=== PATIENT | male | born 1980 | race Caucasian/White ===

== ENCOUNTER 2019-01-05 12:31 | Emergency (ER) | payer SELFPAY ==
[2019-01-05] MEDS ORDERED: Sodium Chloride 0.9% 1,000 ML IV ONE (12:38)
--- NOTE | 2019-01-05 12:41 | EDM.PDOC ---
ED HPI GENERAL MEDICAL PROBLEM - General Stated Complaint: WEAKNESS Time Seen by Provider: 01/05/19 12:36 - History of Present Illness INITIAL COMMENTS - FREE TEXT/NARRATIVE: HISTORY AND PHYSICAL: History of present illness: Patient 38-year-old white malewith past medical history presents with concern of generalized weakness he states he felt near syncopal at work today he denies headache denies chest pain shortness breath or other concern he states he ate his usual breakfast which would consist of a doughnut these had water subsequent was not particularly hot and there was no one else ill at his place of employment Review of systems: As per history of present illness and below otherwise all systems reviewed and negative. Past medical history: As per history of present illness and as reviewed below otherwise noncontributory. Surgical history: As per history of present illness and as reviewed below otherwise noncontributory. Social history: No reported history of drug or alcohol abuse. Family history: As per history of present illness and as reviewed below otherwise noncontributory. Physical exam: HEENT: Atraumatic, normocephalic, pupils reactive, negative for conjunctival pallor or scleral icterus, mucous membranes dry, throat clear, neck supple, nontender, trachea midline. Lungs: Clear to auscultation, breath sounds equal bilaterally, chest nontender. Heart: S1S2, regular, negative for clicks, rubs, or JVD. Abdomen: Soft, nondistended, nontender. Negative for masses or hepatosplenomegaly. Negative for costovertebral tenderness. Pelvis: Stable nontender. Genitourinary: Deferred. Rectal: Deferred. Extremities: Atraumatic, negative for cords or calf pain. Neurovascular unremarkable. Neuro: Awake, alert, oriented. Cranial nerves II through XII unremarkable. Cerebellum unremarkable. Motor and sensory unremarkable throughout. Exam nonfocal. Diagnostics: CBC CMP troponin PT/INR chest x-ray EKG carboxyhemoglobin UA Therapeutics: Saline 1 L bolus personnel monitor Impression: #1 weakness #2 near syncope Definitive disposition and diagnosis as appropriate pending reevaluation and review of above. - Related Data Allergies Allergy/AdvReac Type Severity Reaction Status Date / Time No Known Allergies Allergy Verified 01/05/19 12:42 Home Meds: Home Meds . [No Known Home Meds] 01/05/19 [History] ED ROS GENERAL - Review of Systems Review Of Systems: ROS reveals no pertinent complaints other than HPI. ED EXAM, GENERAL - Physical Exam Exam: See Below (See dictation) Course - Vital Signs Last Recorded V/S: Last Vital Signs Temp 36.6 C 01/05/19 12:43 Pulse 85 01/05/19 12:43 Resp 20 01/05/19 12:43 BP 128/95 H 01/05/19 12:43 Pulse Ox 98 01/05/19 12:43 - Orders/Labs/Meds Orders: Active Orders 24 hr Category Date Time Status Cardiac Monitoring [RC] . DIRECTED Care 01/05/19 12:38 Active EKG Documentation Completion [RC] STAT Care 01/05/19 12:38 Active Pulse Oximetry [RC] ASDIRECTED Care 01/05/19 12:38 Active Chest 1V Frontal [CR] Stat Exams 01/05/19 12:38 Taken Sodium Chloride 0.9% [Normal Saline] 1,000 ml Med 01/05/19 12:38 Active IV STAT Medication Orders Sodium Chloride (Normal Saline) 1,000 mls @ 999 mls/hr IV STAT ONE Stop: 01/05/19 13:38 Last Admin: 01/05/19 12:58 Dose: 999 mls/hr Labs: Laboratory Tests 01/05/19 01/05/19 01/05/19 Range/Units 12:44 12:50 12:50 WBC 8.22 (4.0-11.0) K/uL RBC 5.08 (4.50-5.90) M/uL Hgb 16.4 (13.0-17.0) g/dL Hct 47.5 (38.0-50.0) % MCV 93.5 (80.0-98.0) fL MCH 32.3 H (27.0-32.0) pg MCHC 34.5 (31.0-37.0) g/dL RDW Std Deviation 43.3 (28.0-62.0) fl RDW Coeff of Roman 13 (11.0-15.0) % Plt Count 203 (150-400) K/uL MPV 10.00 (7.40-12.00) fL Neut % (Auto) 56.4 (48.0-80.0) % Lymph % (Auto) 33.8 (16.0-40.0) % [place] % (Auto) 7.9 (0.0-15.0) % Eos % (Auto) 1.7 (0.0-7.0) % Baso % (Auto) 0.2 (0.0-1.5) % Neut # (Auto) 4.6 (1.4-5.7) K/uL Lymph # (Auto) 2.8 H (0.6-2.4) K/uL [place] # (Auto) 0.7 (0.0-0.8) K/uL Eos # (Auto) 0.1 (0.0-0.7) K/uL Baso # (Auto) 0.0 (0.0-0.1) K/uL Nucleated RBC % 0.0 /100WBC Nucleated RBCs # 0 K/uL INR 1.03 ABG Carboxyhemoglobin (0-15) % Sodium (136-148) mmol/L Potassium (3.5-5.1) mmol/L Chloride (98-107) mmol/L Carbon Dioxide (21.0-32.0) mmol/L BUN (7.0-18.0) mg/dL Creatinine (0.8-1.3) mg/dL Est Cr Clr Drug Dosing mL/min Estimated GFR (MDRD) ml/min Glucose (74-106) mg/dL Calcium (8.5-10.1) mg/dL Total Bilirubin (0.2-1.0) mg/dL AST (15-37) IU/L ALT (14-63) IU/L Alkaline Phosphatase (46-116) U/L Total Protein (6.4-8.2) g/dL Albumin (3.4-5.0) g/dL Globulin (2.6-4.0) g/dL Albumin/Globulin Ratio (0.9-1.6) Urine Color YELLOW Urine Appearance CLEAR Urine pH 5.5 (5.0-8.0) Ur Specific [place] <= 1.005 (1.001-1.035) Urine Protein NEGATIVE (NEGATIVE) mg/dL Urine Glucose (UA) NEGATIVE (NEGATIVE) mg/dL Urine Ketones NEGATIVE (NEGATIVE) mg/dL Urine Occult Blood NEGATIVE (NEGATIVE) Urine Nitrite NEGATIVE (NEGATIVE) Urine Bilirubin NEGATIVE (NEGATIVE) Urine Urobilinogen 0.2 (<2.0) EU/dL Ur Leukocyte Esterase NEGATIVE (NEGATIVE) 01/05/19 01/05/19 Range/Units 12:50 12:50 WBC (4.0-11.0) K/uL RBC (4.50-5.90) M/uL Hgb (13.0-17.0) g/dL Hct (38.0-50.0) % MCV (80.0-98.0) fL MCH (27.0-32.0) pg MCHC (31.0-37.0) g/dL RDW Std Deviation (28.0-62.0) fl RDW Coeff of Roman (11.0-15.0) % Plt Count (150-400) K/uL MPV (7.40-12.00) fL Neut % (Auto) (48.0-80.0) % Lymph % (Auto) (16.0-40.0) % [place] % (Auto) (0.0-15.0) % Eos % (Auto) (0.0-7.0) % Baso % (Auto) (0.0-1.5) % Neut # (Auto) (1.4-5.7) K/uL Lymph # (Auto) (0.6-2.4) K/uL [place] # (Auto) (0.0-0.8) K/uL Eos # (Auto) (0.0-0.7) K/uL Baso # (Auto) (0.0-0.1) K/uL Nucleated RBC % /100WBC Nucleated RBCs # K/uL INR ABG Carboxyhemoglobin 6.3 (0-15) % Sodium 140 (136-148) mmol/L Potassium 4.6 (3.5-5.1) mmol/L Chloride 104 (98-107) mmol/L Carbon Dioxide 28.8 (21.0-32.0) mmol/L BUN 10 (7.0-18.0) mg/dL Creatinine 0.9 (0.8-1.3) mg/dL Est Cr Clr Drug Dosing 125.77 mL/min Estimated GFR (MDRD) > 60.0 ml/min Glucose 90 (74-106) mg/dL Calcium 9.2 (8.5-10.1) mg/dL Total Bilirubin 1.3 H (0.2-1.0) mg/dL AST 12 L (15-37) IU/L ALT 15 (14-63) IU/L Alkaline Phosphatase 77 (46-116) U/L Total Protein 7.3 (6.4-8.2) g/dL Albumin 4.3 (3.4-5.0) g/dL Globulin 3.0 (2.6-4.0) g/dL Albumin/Globulin Ratio 1.4 (0.9-1.6) Urine Color Urine Appearance Urine pH (5.0-8.0) Ur Specific [place] (1.001-1.035) Urine Protein (NEGATIVE) mg/dL Urine Glucose (UA) (NEGATIVE) mg/dL Urine Ketones (NEGATIVE) mg/dL Urine Occult Blood (NEGATIVE) Urine Nitrite (NEGATIVE) Urine Bilirubin (NEGATIVE) Urine Urobilinogen (<2.0) EU/dL Ur Leukocyte Esterase (NEGATIVE) Meds: Medications Generic Name Dose Route Start Last Admin Trade Name Freq PRN Reason Stop Dose Admin Sodium Chloride 1,000 mls @ 999 mls/hr 01/05/19 12:38 01/05/19 12:58 Normal Saline IV 01/05/19 13:38 999 mls/hr STAT ONE Administration Departure - Departure Time of Disposition: 13:31 Disposition: Home, Self-Care 01 Condition: Good Clinical Impression: Dizziness - Discharge Information Referrals: PCP,None [Primary Care Provider] - Additional Instructions: The following information is given to patients seen in the emergency department who are being discharged to home. This information is to outline your options for follow-up care. We provide all patients seen in our emergency department with a follow-up referral. The need for follow-up, as well as the timing and circumstances, are variable depending upon the specifics of your emergency department visit. If you don't have a primary care physician on staff, we will provide you with a referral. We always advise you to contact your personal physician following an emergency department visit to inform them of the circumstance of the visit and for follow-up with them and/or the need for any referrals to a consulting specialist. The emergency department will also refer you to a specialist when appropriate. This referral assures that you have the opportunity for followup care with a specialist. All of these measure are taken in an effort to provide you with optimal care, which includes your followup. Under all circumstances we always encourage you to contact your private physician who remains a resource for coordinating your care. When calling for followup care, please make the office aware that this follow-up is from your recent emergency room visit. If for any reason you are refused follow-up, please contact the [facility] emergency department at and asked to speak to the emergency department charge nurse. Push fluids follow up primary medical doctor as needed as discussed and return as needed as discussed - My Orders Last 24 Hours: My Active Orders 01/05/19 12:38 Cardiac Monitoring [RC] . DIRECTED EKG Documentation Completion [RC] STAT Pulse Oximetry [RC] ASDIRECTED Chest 1V Frontal [CR] Stat Sodium Chloride 0.9% [Normal Saline] 1,000 ml IV STAT - Assessment/Plan Last 24 Hours: My Active Orders 01/05/19 12:38 Cardiac Monitoring [RC] . DIRECTED EKG Documentation Completion [RC] STAT Pulse Oximetry [RC] ASDIRECTED Chest 1V Frontal [CR] Stat Sodium Chloride 0.9% [Normal Saline] 1,000 ml IV STAT
[2019-01-05 13:23] LABS: CHLORIDE,CL 104 mmol/L (98-107); SODIUM,NA 140 mmol/L (136-148)
--- NOTE | 2019-01-05 13:34 | CR ---
INDICATION: pain/sob COMPARISON: None. FINDINGS: Single AP portable view of the chest demonstrates adequate inflation of the lungs. No focal airspace consolidation, pneumothorax or effusion. Cardiomediastinal silhouette is unremarkable for an AP view. Osseous structures are unremarkable. IMPRESSION: Negative AP view of the chest. No acute findings. Dictated by Darrell Armstrong MD @ 01/05/2019 1:34:00 PM Dictated by: Darrell Armstrong MD @ 01/05/2019 13:34:05 (Electronically Signed)
== END 2019-01-05 13:41 | disposition home or self-care (01) ==
LOC: MW.ED 12:31
DX: R53.1 Weakness (principal); R55 Syncope and collapse; R42 Dizziness and giddiness
CPT/HCPCS: 36415; 71045; 80053; 81003; 82375; 85025; 85610; 93005; 96360; 99284; J7040; 99283

== ENCOUNTER 2019-07-25 08:59 | Emergency (ER) | payer SELFPAY ==
--- NOTE | 2019-07-25 09:39 | EDM.PDOC ---
ED HPI GENERAL MEDICAL PROBLEM - General Chief Complaint: Respiratory Problem Stated Complaint: WALK IN Time Seen by Provider: 07/25/19 09:39 Source of Information: Reports: Patient - History of Present Illness INITIAL COMMENTS - FREE TEXT/NARRATIVE: HISTORY AND PHYSICAL: History of present illness: [A shunt has smoking history and history of cough over the last month, recently during a copy coughing episode he heard a pop and developed rib pain along the lower left margins there is a small amount of bruising associated tender with palpation no fever nausea vomiting chills sweats no chest pain shortness of breath headache dizziness or palpitation no bowel or urine symptoms ] Review of systems: As per history of present illness and below otherwise all systems reviewed and negative. Past medical history: As per history of present illness and as reviewed below otherwise noncontributory. Surgical history: As per history of present illness and as reviewed below otherwise noncontributory. Social history: No reported history of drug or alcohol abuse. Family history: As per history of present illness and as reviewed below otherwise noncontributory. Physical exam: HEENT: Atraumatic, normocephalic, pupils reactive, negative for conjunctival pallor or scleral icterus, mucous membranes moist, throat clear, neck supple, nontender, trachea midline. Lungs: Clear to auscultation, breath sounds equal bilaterally, chest nontender and right, there is tenderness on the lower rib margins on the left with faint bruising or associated Heart: S1S2, regular, negative for clicks, rubs, or JVD. Abdomen: Soft, nondistended, nontender. Negative for masses or hepatosplenomegaly. Negative for costovertebral tenderness. Pelvis: Stable nontender. Genitourinary: Deferred. Rectal: Deferred. Extremities: Atraumatic, negative for cords or calf pain. Neurovascular unremarkable. Neuro: Awake, alert, oriented. Cranial nerves II through XII unremarkable. Cerebellum unremarkable. Motor and sensory unremarkable throughout. Exam nonfocal. Diagnostics: CBC CMP UA troponin EKG chest 1 view with ribs on left Therapeutics: [Cristobal patton hfa ] Impression: bronchitis Clinically non-displaced rib fracture ] Definitive disposition and diagnosis as appropriate pending reevaluation and review of above. chest pain Pain Score (Numeric/FACES): 9 - Related Data Allergies Allergy/AdvReac Type Severity Reaction Status Date / Time No Known Allergies Allergy Verified 07/25/19 09:13 Home Meds: Home Meds . [No Known Home Meds] 01/05/19 [History] Past Medical History Musculoskeletal History: Reports: Back Pain, Chronic Other Oncologic History: salivary gland tumor - Infectious Disease History Infectious Disease History: Reports: Chicken Pox, Shingles - Past Surgical History Other HEENT Surgeries/Procedures: tumor removed for salivary glands Other Musculoskeletal Surgeries/Procedures:: back surgery Social & Family History - Family History Family Medical History: Noncontributory - Tobacco Use Smoking Status *Q: Current Every Day Smoker Years of Tobacco use: 20 Packs/Tins Daily: 0.5 - Recreational Drug Use Recreational Drug Use: No ED ROS GENERAL - Review of Systems Review Of Systems: See Below ED EXAM, GENERAL - Physical Exam Exam: See Below Course - Vital Signs Last Recorded V/S: Last Vital Signs Temp 97.8 F 07/25/19 09:10 Pulse 70 07/25/19 09:10 Resp 18 07/25/19 09:10 BP 125/86 07/25/19 09:10 Pulse Ox 98 07/25/19 09:10 - Orders/Labs/Meds Orders: Active Orders 24 hr Category Date Time Status EKG Documentation Completion [RC] STAT Care 07/25/19 09:02 Active Labs: Laboratory Tests 07/25/19 07/25/19 07/25/19 Range/Units 09:09 09:15 09:15 WBC 9.29 (4.0-11.0) K/uL RBC 4.81 (4.50-5.90) M/uL Hgb 15.6 (13.0-17.0) g/dL Hct 46.2 (38.0-50.0) % MCV 96.0 (80.0-98.0) fL MCH 32.4 H (27.0-32.0) pg MCHC 33.8 (31.0-37.0) g/dL RDW Std Deviation 47.1 (28.0-62.0) fl RDW Coeff of Roman 13 (11.0-15.0) % Plt Count 204 (150-400) K/uL MPV 9.70 (7.40-12.00) fL Neut % (Auto) 68.0 (48.0-80.0) % Lymph % (Auto) 24.3 (16.0-40.0) % [place] % (Auto) 6.0 (0.0-15.0) % Eos % (Auto) 1.5 (0.0-7.0) % Baso % (Auto) 0.2 (0.0-1.5) % Neut # (Auto) 6.3 H (1.4-5.7) K/uL Lymph # (Auto) 2.3 (0.6-2.4) K/uL [place] # (Auto) 0.6 (0.0-0.8) K/uL Eos # (Auto) 0.1 (0.0-0.7) K/uL Baso # (Auto) 0.0 (0.0-0.1) K/uL Nucleated RBC % 0.0 /100WBC Nucleated RBCs # 0 K/uL Sodium 140 (136-148) mmol/L Potassium 4.4 (3.5-5.1) mmol/L Chloride 103 (98-107) mmol/L Carbon Dioxide 30.4 (21.0-32.0) mmol/L BUN 9 (7.0-18.0) mg/dL Creatinine 0.8 (0.8-1.3) mg/dL Est Cr Clr Drug Dosing 135.21 mL/min Estimated GFR (MDRD) > 60.0 ml/min Glucose 84 (74-106) mg/dL Calcium 8.5 (8.5-10.1) mg/dL Total Bilirubin 0.6 (0.2-1.0) mg/dL AST 11 L (15-37) IU/L ALT 25 (14-63) IU/L Alkaline Phosphatase 79 (46-116) U/L Troponin I < 0.050 (0.000-0.056) ng/mL Total Protein 6.6 (6.4-8.2) g/dL Albumin 3.8 (3.4-5.0) g/dL Globulin 2.8 (2.6-4.0) g/dL Albumin/Globulin Ratio 1.4 (0.9-1.6) Urine Color YELLOW Urine Appearance CLEAR Urine pH 7.5 (5.0-8.0) Ur Specific [place] 1.010 (1.001-1.035) Urine Protein NEGATIVE (NEGATIVE) mg/dL Urine Glucose (UA) NEGATIVE (NEGATIVE) mg/dL Urine Ketones NEGATIVE (NEGATIVE) mg/dL Urine Occult Blood NEGATIVE (NEGATIVE) Urine Nitrite NEGATIVE (NEGATIVE) Urine Bilirubin NEGATIVE (NEGATIVE) Urine Urobilinogen 0.2 (<2.0) EU/dL Ur Leukocyte Esterase NEGATIVE (NEGATIVE) Departure - Departure Time of Disposition: 10:30 Disposition: Home, Self-Care 01 Condition: Good Clinical Impression: Rib injury, Bronchitis - Discharge Information Forms: ED Department Discharge Additional Instructions: medication as prescribed Return if symptoms persist or worsen Follow-up with primary care in 2 weeks No [address] alcohol or hazardous activities while on pain medication no operation of heavy equipment [facility] [address] [place] [id number] The following information is given to patients seen in the emergency department who are being discharged to home. This information is to outline your options for follow-up care. We provide all patients seen in our emergency department with a follow-up referral. The need for follow-up, as well as the timing and circumstances, are variable depending upon the specifics of your emergency department visit. If you don't have a primary care physician on staff, we will provide you with a referral. We always advise you to contact your personal physician following an emergency department visit to inform them of the circumstance of the visit and for follow-up with them and/or the need for any referrals to a consulting specialist. The emergency department will also refer you to a specialist when appropriate. This referral assures that you have the opportunity for follow-up care with a specialist. All of these measure are taken in an effort to provide you with optimal care, which includes your follow-up. Under all circumstances we always encourage you to contact your private physician who remains a resource for coordinating your care. When calling for follow-up care, please make the office aware that this follow-up is from your recent emergency room visit. If for any reason you are refused follow-up, please contact the emergency department at and asked to speak to the emergency department charge nurse. Sepsis Event Note - Evaluation Sepsis Screening Result: No Definite Risk - Focused Exam Vital Signs: Vital Signs Temp Pulse Resp BP Pulse Ox 07/25/19 09:10 97.8 F 70 18 125/86 98 Date Exam was Performed: 07/25/19 Time Exam was Performed: 10:28 - My Orders Last 24 Hours: My Active Orders 07/25/19 09:02 EKG Documentation Completion [RC] STAT - Assessment/Plan Last 24 Hours: My Active Orders 07/25/19 09:02 EKG Documentation Completion [RC] STAT
--- NOTE | 2019-07-25 09:49 | CR ---
INDICATION: Pain COMPARISON: none TECHNIQUE: PA chest and left ribs. FINDINGS: The lungs are clear. There is no evidence of pulmonary contusion, pneumothorax or pleural effusion. The heart and pulmonary vessels are of normal size. Oblique detail views of the ribs demonstrate no evidence of fracture or intrinsic bone lesion. There is no evidence of pleural hematoma. IMPRESSION: IMPRESSION:Negative chest and left ribs. Dictated by Max Banks MD @ Jul 25 2019 9:46AM Signed by Dr. Max Banks @ Jul 25 2019 9:48AM
[2019-07-25 10:06] LABS: BLOOD UREA NITROGEN,BUN 9 mg/dL (7.0-18.0); CARBON DIOXIDE,CO2 30.4 mmol/L (21.0-32.0); CHLORIDE,CL 103 mmol/L (98-107); GLUCOSE RANDOM 84 mg/dL (74-106); POTASSIUM,K 4.4 mmol/L (3.5-5.1); SODIUM,NA 140 mmol/L (136-148)
== END 2019-07-25 10:39 | disposition home or self-care (01) ==
LOC: MW.ED 08:59
DX: S20.212A Contusion of left front wall of thorax, initial encounter (principal); J40 Bronchitis, not specified as acute or chronic; F17.210 Nicotine dependence, cigarettes, uncomplicated; X58.XXXA Exposure to other specified factors, initial encounter
CPT/HCPCS: 36415; 71101-26-LT; 71101-LT; 80053; 81003; 84484; 85025; 87804; 93005; 99283; 99284-25

== ENCOUNTER 2019-08-14 13:44 | Emergency (ER) | payer SELFPAY ==
[2019-08-14] MEDS ORDERED: Acetaminophen/HYDROcodone 325-10 MG Tab PO ONE (14:11)
--- NOTE | 2019-08-14 14:11 | EDM.PDOC ---
ED [facility] GENERAL MEDICAL PROBLEM - General Chief Complaint: Back Pain or Injury Stated Complaint: SEVERE BACK PAIN Time Seen by Provider: 08/14/19 13:46 - History of Present Illness INITIAL COMMENTS - FREE TEXT/NARRATIVE: HPI 39-year-old male with a history of L4/L5 and L5/S1 disc herniation s/p surgery presents for evaluation of recurrent low lumbar pain that is sharp and radiates down the posterior aspect of his right leg and is c/w pain he fell preceding his surgery. Pain occurred suddenly when he took a step and twisted his back yesterday evening. Patient has taken no analgesics prior to presentation. Patient denies a history of recent trauma, fevers, chills, unexpected weight loss, decreased perineal sensation when toileting, difficulty urinating or incontinence, morning stiffness, IV drug use, alcoholism, recent invasive medical procedures, presyncope, abdominal pain, or dysuria. Smokin pack year history. Anticoagulation: denies anticoagulation and Plavix, denies stents. M/S/F/SocHx notable for: please see HPI; remainder reviewed with patient and in chart. ROS: Negative constitutional, eye, cardiovascular, pulmonary, GI, , MSK, skin , neurologic, psychiatric, endocrine unless noted in the HPI. Exam HR 85, RR 17, BP 151/85, T 36.3C, SaO2 100% on room air. Gen: Pleasant, non-toxic appearing, resting moderate discomfort.. HEENT: NC, AT, PEERL, EOMI. Resp: Clear to auscultation bilaterally. Card: RRR GI: ND, non-tender to palpation, no palpable midline masses, no palpable midline pulsatility. : No CVA tenderness to percussion bilaterally. MSK: No visible deformities, strength and tone WNL. No lower thoracic or lumbar spinal TTP, step offs or deformities. No paraspinal TTP. Skin: Normal color with no visible lesions. Neuro: alert and oriented 3, no facial asymmetry, vision and hearing WNL. Straight leg raise test - positive right, negative left. BLE distal sensation intact, 5/5 dorsiflexion / plantarflexion bilaterally. Gait: mildly antalgic, normal, narrow based gait, able to walk unassisted and stand on heels and toes with full apparent strength. Psych: Mood and affect appropriate. Labs / Imaging (pertinent): MDM Previous chart, nursing note, and vitals reviewed. A: 39-year-old male with a history of L4/L5 and L5/S1 disc herniation s/p surgery presents for evaluation of recurrent low lumbar pain that is sharp and radiates down the posterior aspect of his right leg and is c/w pain he fell preceding his surgery. DDx: muscle strain, muscle spasm, sciatica, lumbar radiculopathy, cauda equina syndrome, spinal cord abscess, vertebral osteomyelitis, vertebral diskitis, fracture, seronegative spondyloarthropathy, abdominal aortic aneurysm, abdominal aortic dissection, spontaneous hematoma, malignant spinal cord compression. Evaluation: * Cauda equina - consider unlikely given normal perineal sensation, lack of incontinence or urinary retention. * Infection - abscess, vertebral osteomyelitis, and diskitis are unlikely as the patient is immunocompetent and is with an absence of infectious signs and risk factors on ROS, and a lack of point tenderness. * Fracture - doubt given the absence of spinal TTP and lack of prior trauma * Seronegative spondyloarthropathy - unlikely, no further evaluation currently indicated given the absence of morning stiffness and negative RA, psoriatic arthritis, and autoimmune disease history. * AAA or Dissection - [given the absence of tobacco use, the lack of a palpable pulsatile abdominal mass, abdominal pain, presyncope, an abdominal aortic aneurysm as well as dissection is considered unlikely and further investigation is not currently indicated * Spinal Metastases - given the unremarkable ROS, absence of point spinal tenderness on exam and the lack of discernible neurological deficit, no further testing regarding this etiology is currently indicated. * Consider lumbar radiculopathy to be the most likely cause of the patients symptoms. Counseled patient regarding natural course of radicular back pain, given return to care instructions, and recommendation for primary care physician follow up. Discharged with limited RX for [facility]. Dose of [facility] given in the ED. Patient was notified of their elevated blood pressure and recommended to follow up with their primary care physician. As the patient is without evidence of acute end organ dysfunction no further emergent evaluation is indicated as per the 2013 [facility] clinical policy. Impression: Back Pain. Lower Back Pain Score (Numeric/FACES): 9 - Related Data Allergies Allergy/AdvReac Type Severity Reaction Status Date / Time No Known Allergies Allergy Verified 08/14/19 13:52 Home Meds: Home Meds Acetaminophen/HYDROcodone [[facility] 325-5 MG] 1 - 2 tab PO Q6H PRN #15 tablet 08/14 [Rx] Past Medical History Musculoskeletal History: Reports: Back Pain, Chronic Other Oncologic History: salivary gland tumor - Infectious Disease History Infectious Disease History: Reports: Chicken Pox - Past Surgical History Other HEENT Surgeries/Procedures: tumor removed for salivary glands Other Musculoskeletal Surgeries/Procedures:: back surgery Social & Family History - Family History Family Medical History: Noncontributory - Tobacco Use Smoking Status *Q: Current Every Day Smoker Years of Tobacco use: 20 Packs/Tins Daily: 0.5 - Caffeine Use Caffeine Use: Reports: Coffee - Recreational Drug Use Recreational Drug Use: No ED ROS GENERAL - Review of Systems Review Of Systems: See Below ED EXAM, GENERAL - Physical Exam Exam: See Below Course - Vital Signs Last Recorded V/S: Last Vital Signs Temp 36.3 C 08/14/19 13:52 Pulse 85 08/14/19 13:52 Resp 17 08/14/19 13:52 BP 151/85 H 08/14/19 13:52 Pulse Ox 100 08/14/19 13:52 Departure - Departure Time of Disposition: 14:10 Disposition: Home, Self-Care 01 Clinical Impression: Back pain - Discharge Information Prescriptions: Acetaminophen/HYDROcodone [[facility] 325-5 MG] 1 - 2 tab PO Q6H PRN #15 tablet PRN Reason: Pain Referrals: PCP,None [Primary Care Provider] - Sepsis Event Note - Evaluation Sepsis Screening Result: No Definite Risk - Focused Exam Vital Signs: Vital Signs Temp Pulse Resp BP Pulse Ox 08/14/19 13:52 36.3 C 85 17 151/85 H 100 Date Exam was Performed: 08/14/19 Time Exam was Performed: 14:09
== END 2019-08-14 14:59 | disposition home or self-care (01) ==
LOC: MW.ED 13:44
DX: M54.5 Low back pain (principal); F17.210 Nicotine dependence, cigarettes, uncomplicated
CPT/HCPCS: 99283; A9270

== ENCOUNTER 2019-09-03 08:19 | Emergency (ER) | payer SELFPAY ==
[2019-09-03] MEDS ORDERED: Dexamethasone 10 MG/ML SDV IM ONE (08:58)
[2019-09-03] MEDS ORDERED: Ketorolac 60 MG/2 ML SDV IM ONE (08:58)
[2019-09-03] MEDS ORDERED: Cyclobenzaprine 10 MG Tab PO ONE (09:00)
--- NOTE | 2019-09-03 10:33 | EDM.PDOC ---
ED HPI GENERAL MEDICAL PROBLEM - General Chief Complaint: Back Pain or Injury Stated Complaint: BACK PAIN Time Seen by Provider: 09/03/19 08:46 Source of Information: Reports: Patient - History of Present Illness INITIAL COMMENTS - FREE TEXT/NARRATIVE: Patient with history of herniated disc and back surgery 2017 with recent lower back pain right side radiating to lower back posterior right leg denies any new trauma denies any weakness numbness patient ambulatory not taking any medication and waiting follow-up with [facility]. Denies any chest pain nausea vomiting abdominal pain denies any paresthesia. Also denies any bowel or bladder control problems Onset: Other (Onset of symptoms 2 weeks ago) Severity: Moderate Improves with: Reports: Rest Worsens with: Reports: Movement Associated Symptoms: Reports: No Other Symptoms Back Pain Score (Numeric/FACES): 8 - Related Data Allergies Allergy/AdvReac Type Severity Reaction Status Date / Time No Known Allergies Allergy Verified 09/03/19 08:29 Home Meds: Home Meds Acetaminophen/HYDROcodone [[place] 325-5 MG] 1 tab PO Q6H PRN #10 tablet 09/03/19 [Rx] Cyclobenzaprine [Flexeril] 10 mg PO TID PRN #30 tab 09/03/19 [Rx] predniSONE [Prednisone] 50 mg PO DAILY #5 tablet 09/03/19 [Rx] Past Medical History HEENT History: Reports: None Cardiovascular History: Reports: None Respiratory History: Reports: None Gastrointestinal History: Reports: None Musculoskeletal History: Reports: Back Pain, Chronic Other Oncologic History: salivary gland tumor - Infectious Disease History Infectious Disease History: Reports: Chicken Pox - Past Surgical History Other HEENT Surgeries/Procedures: tumor removed for salivary glands Other Musculoskeletal Surgeries/Procedures:: back surgery Social & Family History - Family History Family Medical History: Noncontributory - Tobacco Use Smoking Status *Q: Current Every Day Smoker Years of Tobacco use: 20 Packs/Tins Daily: 1 - Caffeine Use Caffeine Use: Reports: Coffee - Recreational Drug Use Recreational Drug Use: No ED ROS GENERAL - Review of Systems Review Of Systems: See Below Constitutional: Reports: No Symptoms HEENT: Reports: No Symptoms Respiratory: Reports: No Symptoms Cardiovascular: Reports: No Symptoms Endocrine: Reports: No Symptoms GI/Abdominal: Reports: No Symptoms Musculoskeletal: Reports: Back Pain, Muscle Pain Neurological: Reports: No Symptoms. Denies: Numbness, Paresthesia Psychiatric: Reports: No Symptoms Hematologic/Lymphatic: Reports: No Symptoms Immunologic: Reports: No Symptoms ED EXAM,LOWER BACK PAIN/INJURY - Physical Exam Exam: See Below Exam Limited By: No Limitations General Appearance: Alert, Mild Distress Throat/Mouth: Normal Inspection Head: Atraumatic Neck: Normal Inspection Respiratory/Chest: No Respiratory Distress, Lungs Clear Cardiovascular: Normal Peripheral Pulses, Regular Rate, Rhythm GI/Abdominal: Normal Bowel Sounds (Male) Exam: No Hernia, Normal Inspection Rectal (Males) Exam: Normal Exam Back Exam: Normal Inspection Extremities: Normal Inspection Neurological: Alert, Normal Mood/Affect, Normal Dorsiflexion DTR - Lower Extremities: 4+: Knee (R), Knee (L), Ankle (R), Ankle (L) Psychiatric: Normal Affect Skin Exam: Warm, Dry Lymphatic: No Adenopathy (Normal gait) Course - Vital Signs Last Recorded V/S: Last Vital Signs Temp 97.5 F 09/03/19 08:29 Pulse 86 09/03/19 08:29 Resp 16 09/03/19 08:29 BP 107/77 09/03/19 08:29 Pulse Ox 100 09/03/19 08:29 - Orders/Labs/Meds Meds: Medications Discontinued Medications Generic Name Dose Route Start Last Admin Trade Name Freq PRN Reason Stop Dose Admin Cyclobenzaprine HCl 10 mg 09/03/19 09:00 09/03/19 09:14 Flexeril PO 09/03/19 09:01 10 mg ONETIME ONE Administration Dexamethasone 10 mg 09/03/19 08:58 09/03/19 09:14 Dexamethasone IM 09/03/19 08:59 10 mg ONETIME ONE Administration Ketorolac Tromethamine 60 mg 09/03/19 08:58 09/03/19 09:16 Toradol IM 09/03/19 08:59 60 mg ONETIME ONE Administration Departure - Departure Time of Disposition: 10:33 Disposition: Home, Self-Care 01 Condition: Good Clinical Impression: Sciatica, Back pain - Discharge Information *PRESCRIPTION DRUG MONITORING PROGRAM REVIEWED*: No *COPY OF PRESCRIPTION DRUG MONITORING REPORT IN PATIENT RAYMUNDO: Not Applicable Prescriptions: Acetaminophen/HYDROcodone [[place] 325-5 MG] 1 tab PO Q6H PRN #10 tablet PRN Reason: Pain (Moderate 4-6) Cyclobenzaprine [Flexeril] 10 mg PO TID PRN #30 tab PRN Reason: Pain (Mild 1-3) predniSONE [Prednisone] 50 mg PO DAILY #5 tablet Instructions: Acute Back Pain, Adult Referrals: PCP,None [Primary Care Provider] - Forms: ED Department Discharge Additional Instructions: The following information is given to patients seen in the emergency department who are being discharged to home. This information is to outline your options for follow-up care. We provide all patients seen in our emergency department with a follow-up referral. The need for follow-up, as well as the timing and circumstances, are variable depending upon the specifics of your emergency department visit. If you don't have a primary care physician on staff, we will provide you with a referral. We always advise you to contact your personal physician following an emergency department visit to inform them of the circumstance of the visit and for follow-up with them and/or the need for any referrals to a consulting specialist. The emergency department will also refer you to a specialist when appropriate. This referral assures that you have the opportunity for follow-up care with a specialist. All of these measure are taken in an effort to provide you with optimal care, which includes your follow-up. Under all circumstances we always encourage you to contact your private physician who remains a resource for coordinating your care. When calling for follow-up care, please make the office aware that this follow-up is from your recent emergency room visit. If for any reason you are refused follow-up, please contact the [facility] Emergency Department at and asked to speak to the emergency department charge nurse. [facility] [address] [place] [address] [id number] [address] [address] Sepsis Event Note - Evaluation Sepsis Screening Result: No Definite Risk - Focused Exam Vital Signs: Vital Signs Temp Pulse Resp BP Pulse Ox 09/03/19 08:29 97.5 F 86 16 107/77 100 Date Exam was Performed: 09/03/19 Time Exam was Performed: 10:28
== END 2019-09-03 10:43 | disposition home or self-care (01) ==
LOC: MW.ED 08:19
DX: M54.41 Lumbago with sciatica, right side (principal); F17.210 Nicotine dependence, cigarettes, uncomplicated
CPT/HCPCS: 96372; 99283; A9270; J1100; J1885; 99282

== ENCOUNTER 2020-05-14 10:52 | Emergency (ER) | payer SELFPAY ==
[2020-05-14] MEDS ORDERED: LORazepam 1 MG Tab PO ONE (12:00)
[2020-05-14 12:57] LABS: BLOOD UREA NITROGEN,BUN 5 mg/dL (7.0-18.0); CHLORIDE,CL 103 mmol/L (98-107); GLUCOSE RANDOM 86 mg/dL (74-106); POTASSIUM,K 4.2 mmol/L (3.5-5.1); SODIUM,NA 141 mmol/L (136-148)
--- NOTE | 2020-05-14 13:16 | CR ---
INDICATION: Anxiety. TECHNIQUE: Portable AP view of the chest, 2 images. COMPARISON: 07/25/2019 [facility] chest and rib x-rays. FINDINGS: Lungs and pleural spaces clear. Heart, mediastinum and pulmonary vessels normal. No significant osseous abnormality. IMPRESSION: Negative chest. Dictated by Saturnino Sheth MD @ May 14 2020 1:11PM Signed by Dr. Saturnino Sheth @ May 14 2020 1:14PM
[2020-05-14] MEDS ORDERED: Ondansetron 4 MG Tab.DIS PO ONE (13:50)
--- NOTE | 2020-05-14 13:56 | EDM.PDOC ---
ED HPI GENERAL MEDICAL PROBLEM - General Chief Complaint: General Stated Complaint: ANXIETY Time Seen by Provider: 05/14/20 10:53 Source of Information: Reports: Patient History Limitations: Reports: No Limitations - History of Present Illness INITIAL COMMENTS - FREE TEXT/NARRATIVE: HISTORY AND PHYSICAL: History of present illness: Patient is a 39-year-old male who presents to the ED today with concern of anxiety that started 4 months ago but has worsened over the past week. Patient states in his early 20s he had a history of anxiety prior to being in the and was on medications for it and states that at that time, his anxiety was severe and feels the same to him again now. Patient states that he was able to come off the medications after a few years and joined the and has not had issues with anxiety until the past several months again. He states his anxiety today is the same as when it was severe in his 20s. Patient states he is constantly feeling anxious and "worked up "and states that he has not had a appetite due to this and difficulties sleeping due to worrying about dying/. Patient states he feels constantly clenched and cannot relax and shaky due to anxiety. Patient has a history of anxiety but denies any other health history. Patient denies any other symptoms or concerns. Patient states that he did try to make an appointment with [facility] but his appointment was 3 weeks out and states that he feels like he cannot wait this long for this appointment. Patient states that he has not followed up at [facility] because they "do not help ". Patient states he has only been in [place] for a few months and does not have enough money to properly manage his anxiety sooner but staters now it is significant enough that he needs to address it. Patient denies fever, chills, chest pain, shortness of breath, or cough. Denies headache, neck stiff ness, change in vision, syncope, or near syncope. Denies nausea, vomiting, abdominal pain, diarrhea, constipation, or dysuria. Has not noted any blood in urine or stool. Patient has been eating and drinking appropriately. Review of systems: As per history of present illness and below otherwise all systems reviewed and negative. Past medical history: As per history of present illness and as reviewed below otherwise noncontributory. Surgical history: As per history of present illness and as reviewed below otherwise noncontributory. Social history: See social history for further information Family history: As per history of present illness and as reviewed below otherwise noncontributory. Physical exam: General: Patient is alert, oriented, and in no acute distress. Patient sitting comfortably on exam table but anxious appearing, gripping hands tightly. HEENT: Atraumatic, normocephalic, pupils equal and reactive bilaterally, negative for conjunctival pallor or scleral icterus, mucous membranes moist, TMs normal bilaterally, throat clear, neck supple, nontender, trachea midline. No drooling or trismus noted. No meningeal signs. No hot potato voice noted. Lungs: Clear to auscultation, breath sounds equal bilaterally, chest nontender. Heart: S1S2, regular rate and rhythm without overt murmur Abdomen: Soft, nondistended, nontender. Negative for masses or hepatosplenomegaly. Negative for costovertebral tenderness. Pelvis: Stable nontender. Genitourinary: Deferred. Rectal: Deferred. Skin: Intact, warm, dry. No lesions or rashes noted. Extremities: Atraumatic, negative for cords or calf pain. Neurovascular unremarkable. Neuro: Awake, alert, oriented. Cranial nerves II through XII unremarkable. Cerebellum unremarkable. Motor and sensory unremarkable throughout. Exam nonfocal. Notes: Patient does express that his anxiety is quite severe and would like to be put back on anti anxiety medication as soon as he can. He states he does not feel as if he can wait longer due to severity of anxiety symptoms. I did call [facility] to expedite an appointment for patient due to severe anxiety. I was able to get patient an appointment for tomorrow morning at 10:45am with Dr. Green, family medicine. Patient was also provided with outpatient behavioral health resources. Discussed importance for follow-up with this appointment tomorrow as scheduled. Signs and symptoms that would prompt return to the ED thoroughly discussed with patient. Voices understanding and is agreeable to plan of care. Denies any further questions or concerns at this time. Diagnostics: CBC, CMP, UA, EKG, CXR 1V, Trop Therapeutics: Ativan Prescription: None Impression: Anxiety Plan: 1. You have an appointment tomorrow morning at 10:45am with Dr. Green at [facility]. Wear a mask to your appointment and arrive alone. 2. Return to the ED as needed and as discussed. Definitive disposition and diagnosis as appropriate pending reevaluation and review of above. Generalized Pain Score (Numeric/FACES): 2 - Related Data Allergies Allergy/AdvReac Type Severity Reaction Status Date / Time No Known Allergies Allergy Verified 05/14/20 11:26 Home Meds: Home Meds . [No Known Home Meds] 05/14/20 [History] Past Medical History HEENT History: Reports: None Cardiovascular History: Reports: None Respiratory History: Reports: None Gastrointestinal History: Reports: None Musculoskeletal History: Reports: Back Pain, Chronic Psychiatric History: Reports: Anxiety, Depression Other Oncologic History: salivary gland tumor - Infectious Disease History Infectious Disease History: Reports: None - Past Surgical History Other HEENT Surgeries/Procedures: tumor removed for salivary glands Other Musculoskeletal Surgeries/Procedures:: back surgery Social & Family History - Family History Family Medical History: Noncontributory - Tobacco Use Smoking Status *Q: Never Smoker - Caffeine Use Caffeine Use: Reports: Coffee - Recreational Drug Use Recreational Drug Use: No ED ROS GENERAL - Review of Systems Review Of Systems: Comprehensive ROS is negative, except as noted in HPI. ED EXAM, GENERAL - Physical Exam Exam: See Below (see dictation) Course - Vital Signs Last Recorded V/S: Last Vital Signs Temp 97.6 F 05/14/20 11:27 Pulse 80 05/14/20 13:01 Resp 13 05/14/20 13:01 BP 127/78 05/14/20 13:01 Pulse Ox 99 05/14/20 13:01 - Orders/Labs/Meds Orders: Active Orders 24 hr Category Date Time Status Communication Order [RC] STAT Care 05/14/20 13:56 Active EKG Documentation Completion [RC] STAT Care 05/14/20 11:59 Active CULTURE URINE [RM] Stat Lab 05/14/20 13:26 Received Labs: Laboratory Tests 05/14/20 05/14/20 05/14/20 Range/Units 12:19 12:19 13:26 WBC 7.27 (4.0-11.0) K/uL RBC 4.86 (4.50-5.90) M/uL Hgb 15.9 (13.0-17.0) g/dL Hct 46.5 (38.0-50.0) % MCV 95.7 (80.0-98.0) fL MCH 32.7 H (27.0-32.0) pg MCHC 34.2 (31.0-37.0) g/dL RDW Std Deviation 43.8 (28.0-62.0) fl RDW Coeff of Roman 13 (11.0-15.0) % Plt Count 200 (150-400) K/uL MPV 9.80 (7.40-12.00) fL Neut % (Auto) 61.8 (48.0-80.0) % Lymph % (Auto) 29.8 (16.0-40.0) % Hardeman % (Auto) 6.9 (0.0-15.0) % Eos % (Auto) 1.2 (0.0-7.0) % Baso % (Auto) 0.3 (0.0-1.5) % Neut # (Auto) 4.5 (1.4-5.7) K/uL Lymph # (Auto) 2.2 (0.6-2.4) K/uL Hardeman # (Auto) 0.5 (0.0-0.8) K/uL Eos # (Auto) 0.1 (0.0-0.7) K/uL Baso # (Auto) 0.0 (0.0-0.1) K/uL Nucleated RBC % 0.0 /100WBC Nucleated RBCs # 0 K/uL Sodium 141 (136-148) mmol/L Potassium 4.2 (3.5-5.1) mmol/L Chloride 103 (98-107) mmol/L Carbon Dioxide 26.0 (21.0-32.0) mmol/L BUN 5 L (7.0-18.0) mg/dL Creatinine 0.7 L (0.8-1.3) mg/dL Est Cr Clr Drug Dosing 143.62 mL/min Estimated GFR (MDRD) > 60.0 ml/min Glucose 86 (74-106) mg/dL Calcium 8.7 (8.5-10.1) mg/dL Total Bilirubin 1.1 H (0.2-1.0) mg/dL AST 19 (15-37) IU/L ALT 23 (14-63) IU/L Alkaline Phosphatase 68 (46-116) U/L Troponin I < 0.050 (0.000-0.056) ng/mL Total Protein 6.8 (6.4-8.2) g/dL Albumin 4.2 (3.4-5.0) g/dL Globulin 2.6 (2.6-4.0) g/dL Albumin/Globulin Ratio 1.6 (0.9-1.6) Urine Color YELLOW Urine Appearance CLEAR Urine pH 6.0 (5.0-8.0) Ur Specific [place] 1.015 (1.001-1.035) Urine Protein NEGATIVE (NEGATIVE) mg/dL Urine Glucose (UA) NEGATIVE (NEGATIVE) mg/dL Urine Ketones 15 H (NEGATIVE) mg/dL Urine Occult Blood NEGATIVE (NEGATIVE) Urine Nitrite NEGATIVE (NEGATIVE) Urine Bilirubin NEGATIVE (NEGATIVE) Urine Urobilinogen 0.2 (<2.0) EU/dL Ur Leukocyte Esterase TRACE H (NEGATIVE) Urine RBC 0-1 (0-2/HPF) Urine WBC 1-2 (0-5/HPF) Ur Epithelial Cells RARE (NONE-FEW) Urine Bacteria RARE (NEGATIVE) Meds: Medications Discontinued Medications Generic Name Dose Route Start Last Admin Trade Name Bernadette PRN Reason Stop Dose Admin Lorazepam 1 mg 05/14/20 12:00 05/14/20 12:18 Ativan PO 05/14/20 12:01 1 mg ONETIME ONE Administration Ondansetron HCl 4 mg 05/14/20 13:50 Zofran Odt PO 05/14/20 13:51 ONETIME ONE Departure - Departure Time of Disposition: 14:35 Disposition: Home, Self-Care 01 Clinical Impression: Anxiety - Discharge Information Referrals: Blayne Song MD [Primary Care Provider] - Forms: ED Department Discharge Additional Instructions: The following information is given to patients seen in the emergency department who are being discharged to home. This information is to outline your options for follow-up care. We provide all patients seen in our emergency department with a follow-up referral. The need for follow-up, as well as the timing and circumstances, are variable depending upon the specifics of your emergency department visit. If you don't have a primary care physician on staff, we will provide you with a referral. We always advise you to contact your personal physician following an emergency department visit to inform them of the circumstance of the visit and for follow-up with them and/or the need for any referrals to a consulting specialist. The emergency department will also refer you to a specialist when appropriate. This referral assures that you have the opportunity for follow-up care with a specialist. All of these measure are taken in an effort to provide you with optimal care, which includes your follow-up. Under all circumstances we always encourage you to contact your private physician who remains a resource for coordinating your care. When calling for follow-up care, please make the office aware that this follow-up is from your recent emergency room visit. If for any reason you are refused follow-up, please contact the [facility] Emergency Department at and asked to speak to the emergency department charge nurse. [facility], Dr. Green [address] [place] [id number] 1. You have an appointment tomorrow morning at 10:45am with Dr. Green at [facility]. Wear a mask to your appointment and arrive alone. 2. Return to the ED as needed and as discussed. Sepsis Event Note (ED) - Evaluation Sepsis Screening Result: No Definite Risk - Focused Exam Vital Signs: Vital Signs Temp Pulse Resp BP Pulse Ox 05/14/20 13:01 80 13 127/78 99 05/14/20 11:27 97.6 F 87 17 130/79 100 - My Orders Last 24 Hours: My Active Orders 05/14/20 11:59 EKG Documentation Completion [RC] STAT 05/14/20 13:26 CULTURE URINE [RM] Stat 05/14/20 13:56 Communication Order [RC] STAT - Assessment/Plan Last 24 Hours: My Active Orders 05/14/20 11:59 EKG Documentation Completion [RC] STAT 05/14/20 13:26 CULTURE URINE [RM] Stat 05/14/20 13:56 Communication Order [RC] STAT
== END 2020-05-14 14:51 | disposition home or self-care (01) ==
LOC: MW.ED 10:52
DX: F41.9 Anxiety disorder, unspecified (principal)
CPT/HCPCS: 36415; 71045; 80053; 81001; 84484; 85025; 87086; 93005; 99283; A9270

== ENCOUNTER 2022-07-17 18:15 | Emergency (ER) | payer OTHER ==
[2022-07-17] MEDS ORDERED: Ibuprofen 600 MG Tab PO ONE (19:16)
[2022-07-17] MEDS ORDERED: Acetaminophen 325 MG Tab PO ONE (19:16)
[2022-07-17] MEDS ORDERED: Ondansetron 4 MG Tab.DIS PO ONE (19:16)
[2022-07-17 19:17] LABS: CORONAVIRUS COVID-19 NAA NEGATIVE (NEGATIVE); INFLUENZA A NAA NEGATIVE (NEGATIVE); INFLUENZA B NAA NEGATIVE (NEGATIVE)
[2022-07-17] MEDS ORDERED: Amoxicillin 500 MG Cap PO ONE (20:02)
[2022-07-17] MEDS ORDERED: Azithromycin 250 MG Tab PO ONE (20:02)
== END 2022-07-17 20:31 | disposition home or self-care (01) ==
LOC: MW.ED 18:15
DX: J18.9 Pneumonia, unspecified organism (principal); Z20.822 Contact with and (suspected) exposure to COVID-19
CPT/HCPCS: 0240U; 71046; 99284; A9270

== ENCOUNTER 2022-10-02 07:02 | Emergency (ER) | payer OTHER ==
[2022-10-02 08:03] LABS: CORONAVIRUS COVID-19 NAA NEGATIVE (NEGATIVE); INFLUENZA A NAA NEGATIVE (NEGATIVE); INFLUENZA B NAA NEGATIVE (NEGATIVE); RESPIRATORY SYNCYTIAL VIR NAA NEGATIVE (NEGATIVE)
== END 2022-10-02 08:21 | disposition home or self-care (01) ==
LOC: MW.ED 07:02
DX: J18.9 Pneumonia, unspecified organism (principal); Z20.822 Contact with and (suspected) exposure to COVID-19
CPT/HCPCS: 0241U; 71045; 99283

== ENCOUNTER 2023-07-25 20:04 | Emergency (ER) | payer OTHER ==
[2023-07-25] MEDS ORDERED: Acetaminophen 500 MG Tab PO STA (20:45)
[2023-07-25] MEDS ORDERED: Ketorolac 10 MG Tab PO STA (20:45)
[2023-07-25 21:40] LABS: CORONAVIRUS COVID-19 NAA POSITIVE (NEGATIVE); INFLUENZA A NAA NEGATIVE (NEGATIVE); INFLUENZA B NAA NEGATIVE (NEGATIVE)
== END 2023-07-25 22:16 | disposition home or self-care (01) ==
LOC: MW.ED 20:04
DX: U07.1 COVID-19 (principal)
CPT/HCPCS: 0240U; 71046; 87651; 99283; A9270

== ENCOUNTER 2023-09-04 10:45 | Emergency (ER) | payer OTHER ==
[2023-09-04] MEDS ORDERED: oxyCODONE 5 MG Tab PO ONE (11:52)
[2023-09-04 12:13] LABS: BASOPHILS ABSOLUTE AUTO 0.05 K/uL (0.00-0.20); EOSINOPHILS ABSOLUTE AUTO 0.12 K/uL (0.00-0.45); EOSINOPHILS PERCENT AUTO 2.4 % (0.0-6.0); HEMATOCRIT 42.6 % (42.0-52.0); HEMOGLOBIN 14.7 g/dL (14.0-18.0); IMMATURE GRAN ABSOLUTE AUTO 0.01 K/uL (0.00-0.05); IMMATURE GRAN PERCENT AUTO 0.2 % (0.0-0.4); LYMPHOCYTES ABSOLUTE AUTO 2.03 K/uL (1.00-4.80); LYMPHOCYTES PERCENT AUTO 41.4 % (24.0-44.0); MEAN CORPUSCULAR HEMOGLOBIN 32.7 pg (28.0-32.0); MEAN CORPUSCULAR HGB CONC 34.5 g/dL (32.0-36.0); MEAN CORPUSCULAR VOLUME 94.7 fL (83.0-99.0); MEAN PLATELET VOLUME 10.1 fL (9.4-12.4); MONOCYTES ABSOLUTE AUTO 0.48 K/uL (0.00-0.80); MONOCYTES PERCENT AUTO 9.8 % (0.0-8.0); NEUTROPHILS ABSOLUTE AUTO 2.21 K/uL (1.80-7.70); NEUTROPHILS PERCENT AUTO 45.2 % (41.0-71.0); PLATELET COUNT,PLT 149 K/uL (150-400)
[2023-09-04 12:37] LABS: INR 1.09 (0.86-1.11); PTT,PARTIAL THROMBOPLSTIN TIME 29.9 SEC (23.9-30.7)
[2023-09-04 12:42] LABS: A/G RATIO 1.4 (0.9-1.6); ALBUMIN 3.7 g/dL (3.4-5.0); BILIRUBIN TOTAL 0.8 mg/dL (0.2-1.0); CALCIUM 8.4 mg/dL (8.5-10.1); CREATININE 0.8 mg/dL (0.8-1.3); EST CRCL DRUG DOSING (CG) 129.86 mL/min; POTASSIUM,K 4.3 mmol/L (3.5-5.1); PROTEIN TOTAL,TP 6.3 g/dL (6.4-8.2)
== END 2023-09-04 13:40 | disposition home or self-care (01) ==
LOC: MW.ED 10:45
DX: I83.813 Varicose veins of bilateral lower extremities with pain (principal)
CPT/HCPCS: 36415; 80053; 85025; 85610; 85730; 93971; 99284; A9270; 99283

== ENCOUNTER 2024-05-21 13:53 | Emergency (ER) | payer OTHER ==
[2024-05-21] MEDS: Acetaminophen/oxyCODONE 325-5 MG Tab PO ONE (14:18)
[2024-05-21] MEDS: predniSONE 20 MG Tab PO ONE (14:18)
== END 2024-05-21 17:03 | disposition home or self-care (01) ==
LOC: MW.ED 13:53
DX: M54.42 Lumbago with sciatica, left side (principal); Z75.8 Other problems related to medical facilities and other health care
CPT/HCPCS: 72148; 99284; A9270; 99283

== ENCOUNTER 2024-06-03 08:14 | Emergency (ER) | payer OTHER ==
[2024-06-03] MEDS: Ketorolac 30 MG/ML SDV IM ONE (08:57)
== END 2024-06-03 09:24 | disposition home or self-care (01) ==
LOC: MW.ED 08:14
DX: M25.542 Pain in joints of left hand (principal); M25.541 Pain in joints of right hand; M25.532 Pain in left wrist; M25.531 Pain in right wrist; Z79.899 Other long term (current) drug therapy; Z75.8 Other problems related to medical facilities and other health care
CPT/HCPCS: 96372; 99283; J1885

== ENCOUNTER 2024-08-13 12:18 | Emergency (ER) | payer OTHER ==
[2024-08-13] MEDS: Triamcinolone Acetonide 40 MG/ML 1 ML SDV INJECT STA (12:58)
== END 2024-08-13 13:57 | disposition home or self-care (01) ==
LOC: MW.ED 12:18
DX: M54.50 Low back pain, unspecified (principal); G89.29 Other chronic pain; Z86.16 Personal history of COVID-19; Z79.899 Other long term (current) drug therapy; Z75.8 Other problems related to medical facilities and other health care
CPT/HCPCS: 96372; 99283; J3301; J3360

== ENCOUNTER 2024-09-25 14:59 | Emergency (ER) | payer OTHER ==
[2024-09-25] MEDS ORDERED: Sodium Chloride 0.9% 10 ML Syringe FLUSH PRN (15:28)
[2024-09-25 16:07] LABS: BASOPHILS ABSOLUTE AUTO 0.04 K/uL (0.00-0.20); BASOPHILS PERCENT AUTO 0.4 % (0.0-1.0); EOSINOPHILS PERCENT AUTO 1.1 % (0.0-6.0); HEMATOCRIT 38.5 % (42.0-52.0); HEMOGLOBIN 13.6 g/dL (14.0-18.0); IMMATURE GRAN ABSOLUTE AUTO 0.01 K/uL (0.00-0.05); IMMATURE GRAN PERCENT AUTO 0.1 % (0.0-0.4); LYMPHOCYTES ABSOLUTE AUTO 2.71 K/uL (1.00-4.80); LYMPHOCYTES PERCENT AUTO 30.2 % (24.0-44.0); MEAN CORPUSCULAR HEMOGLOBIN 33.3 pg (28.0-32.0); MEAN CORPUSCULAR HGB CONC 35.3 g/dL (32.0-36.0); MEAN CORPUSCULAR VOLUME 94.1 fL (83.0-99.0); MONOCYTES PERCENT AUTO 7.8 % (0.0-8.0); NEUTROPHILS ABSOLUTE AUTO 5.42 K/uL (1.80-7.70); NEUTROPHILS PERCENT AUTO 60.4 % (41.0-71.0); PLATELET COUNT,PLT 194 K/uL (150-400); RED BLOOD CELL COUNT 4.09 M/uL (4.52-5.90); WHITE BLOOD CELL COUNT,WBC 8.98 K/uL (3.9-11.3)
[2024-09-25 16:39] LABS: A/G RATIO 1.3 (0.9-1.6); ALBUMIN 3.4 g/dL (3.4-5.0); BILIRUBIN TOTAL 0.8 mg/dL (0.2-1.0); CALCIUM 8.2 mg/dL (8.5-10.1); CARBON DIOXIDE,CO2 27.1 mmol/L (21.0-32.0); CREATININE 0.9 mg/dL (0.8-1.3); EST CRCL DRUG DOSING (CG) 114.37 mL/min; MAGNESIUM 1.7 mg/dL (1.8-2.4); POTASSIUM,K 3.9 mmol/L (3.5-5.1)
== END 2024-09-25 18:16 | disposition home or self-care (01) ==
LOC: MW.ED 14:59
DX: S14.3XXA Injury of brachial plexus, initial encounter (principal); G58.9 Mononeuropathy, unspecified; Z79.899 Other long term (current) drug therapy; Z86.16 Personal history of COVID-19; X58.XXXA Exposure to other specified factors, initial encounter
CPT/HCPCS: 36415; 70450; 70450-26; 80053; 83735; 85025; 93005; 99284

== ENCOUNTER 2025-02-11 15:29 | Emergency (ER) | payer OTHER ==
[2025-02-11 15:57] LABS: BASOPHILS ABSOLUTE AUTO 0.05 K/uL (0.00-0.20); BASOPHILS PERCENT AUTO 0.7 % (0.0-1.0); EOSINOPHILS ABSOLUTE AUTO 0.21 K/uL (0.00-0.45); EOSINOPHILS PERCENT AUTO 3.1 % (0.0-6.0); IMMATURE GRAN ABSOLUTE AUTO 0.01 K/uL (0.00-0.05); IMMATURE GRAN PERCENT AUTO 0.1 % (0.0-0.4); LYMPHOCYTES ABSOLUTE AUTO 2.97 K/uL (1.00-4.80); LYMPHOCYTES PERCENT AUTO 43.7 % (24.0-44.0); MEAN PLATELET VOLUME 8.9 fL (9.4-12.4); MONOCYTES ABSOLUTE AUTO 0.50 K/uL (0.00-0.80); MONOCYTES PERCENT AUTO 7.4 % (0.0-8.0); NEUTROPHILS ABSOLUTE AUTO 3.06 K/uL (1.80-7.70); NEUTROPHILS PERCENT AUTO 45.0 % (41.0-71.0); NRBC ABSOLUTE 0.00 K/uL (0.00-0.02); NRBC PERCENT 0.0 /100WBC (0.0-0.2); PLATELET COUNT,PLT 224 K/uL (150-400); RED BLOOD CELL COUNT 4.70 M/uL (4.52-5.90); WHITE BLOOD CELL COUNT,WBC 6.80 K/uL (3.9-11.3)
[2025-02-11 16:27] LABS: BLOOD UREA NITROGEN,BUN 6 mg/dL (7.0-18.0); CARBON DIOXIDE,CO2 29.7 mmol/L (21.0-32.0); CHLORIDE,CL 104 mmol/L (98-107); CREATININE 0.8 mg/dL (0.8-1.3); GLUCOSE RANDOM 80 mg/dL (74-106); POTASSIUM,K 3.8 mmol/L (3.5-5.1); SODIUM,NA 140 mmol/L (136-148)
[2025-02-11] MEDS: Ketorolac 30 MG/ML SDV IVPUSH ONE (16:31)
[2025-02-11] MEDS: Ondansetron 4 MG/2 ML SDV IVPUSH ONE (16:31)
[2025-02-11 16:41] LABS: ESTIMATED GFR 112 mL/min (>60)
== END 2025-02-11 17:32 | disposition home or self-care (01) ==
LOC: MW.ED 15:29
DX: M48.061 Spinal stenosis, lumbar region without neurogenic claudication (principal); Z79.899 Other long term (current) drug therapy; Z86.16 Personal history of COVID-19
CPT/HCPCS: 36415; 72148; 80048; 85025; 96374; 96375; 99284; A9270; J1100; J1885; J2270; J2405

== ENCOUNTER 2025-05-17 18:46 | Emergency (ER) | payer OTHER ==
[2025-05-17] MEDS: Acetaminophen/oxyCODONE 325-5 MG Tab PO ONE (19:38)
== END 2025-05-17 21:40 | disposition home or self-care (01) ==
LOC: MW.ED 18:46
DX: S97.81XA Crushing injury of right foot, initial encounter (principal); V48.2XXA Person on outside of car injured in noncollision transport accident in nontraffic accident, initial encounter
CPT/HCPCS: 73630; 99283; A9270

== ENCOUNTER 2025-05-30 08:16 | Emergency (ER) | payer OTHER ==
[2025-05-30] MEDS: fentaNYL 50 MCG/ML SDV IM ONE (09:14)
[2025-05-30] MEDS: Ketorolac 30 MG/ML SDV IM ONE (09:15)
[2025-05-30] MEDS: oxyCODONE ER 10 MG TAB.ER PO ONE (09:51)
== END 2025-05-30 09:52 | disposition home or self-care (01) ==
LOC: MW.ED 08:16
DX: K08.89 Other specified disorders of teeth and supporting structures (principal); Z79.899 Other long term (current) drug therapy
CPT/HCPCS: 96372; 99282; A9270; J1885; J3010; 99283